=== PATIENT | male | born 1985 | race Two or more races ===

== ENCOUNTER 2024-12-09 09:20 | Emergency (ER) | payer MEDICAID, SELFPAY ==
[2024-12-09 09:37] VITALS: BP 145/79; PULSE 77; RESP 18; TEMP 36.4; O2SAT 98; BMI 26.4
--- NOTE | 2024-12-09 10:03 | XR_ITS ---
Examination: CT maxillofacial, with contrast 2-D sagittal and coronal reconstructions. 3-D reconstructions Date and time of exam:December 09, 2024 1354 hours INDICATIONS: Left-sided facial swelling beginning one day ago CTDI: vol (mGy):20.2 DLP: (mGycm):397 Technique: Multiple axial images maxillofacial region, 3.0 mm slice thickness, post intravenous injection 50 cc cc Isovue 370. 2-D sagittal coronal reconstructions. 3-D reconstructions Low dose protocols were performed. One or more of the following dose reduction techniques were used; automated exposure control, adjustment of the mA and/or KV according to patient size, use of iterative reconstruction technique. Findings: Frontal bone intact Orbital rims intact with significant left maxillary sinus disease No nasal bone fractures. No depression zygomatic arches Pterygoid plates maxilla and the mandible intact Mild soft tissue facial swelling external to the left maxilla but no soft tissue abscess Normal epiglottis Bilateral carotid triangle lymph nodes, the largest on the left side 18 mm The larynx appears normal IMPRESSION: Soft tissue left facial cellulitis, no soft tissue abscess No cortical bone destruction
--- NOTE | 2024-12-09 10:12 | PD.EDRME ---
Rapid Medical Screening Exam RME Arrival date/time: 12/09/24 09:20 Chief Complaint: Dental/Oral/Throat Time Seen by Provider: 12/09/24 09:28 Vital signs: Vital Signs Temperature 97.5 F 12/09/24 09:37 Pulse Rate 77 12/09/24 09:37 Respiratory Rate 18 12/09/24 09:37 Blood Pressure 145/79 H 12/09/24 09:37 Pulse Oximetry (%) 98 12/09/24 09:37 Oxygen Delivery Method Room Air 12/09/24 09:37 RME Narrative: 39-year-old male patient presents emergency department with left-sided facial pain over the last 24 hours there is moderate swelling over patient's left face and over the left lower eyelid. He denies fever or chills he reports tooth pain prior to his symptoms.
[2024-12-09 10:36] LABS: Lactate (Lactic Acid) 1.8 mMol/L (0.4-2.0)
[2024-12-09 10:43] LABS: Basophils # (Auto) 0.1 Thou/mm3 (0.0-0.2); Basophils % (Auto) 0 % (0-2.5); Eosinophils # (Auto) 0.1 Thou/mm3 (0.0-0.5); Eosinophils % (Auto) 1 % (0-10); Hematocrit 43.9 % (41.0-53.0); Hemoglobin 16.3 g/dL (13.5-16.0); Immature Granulocytes % (Auto) 1 % (0-0); Immature Granulocytes Auto 0.06 Thou/mm3 (0.00-0.00); Lymphocytes % (Auto) 18 % (10-50); Mean Corpuscular HGB Conc 37.1 g/dl (31.0-37.0); Mean Corpuscular Hemoglobin 29.6 pg (25.0-35.0); Mean Corpuscular Volume 80 fL (80-100); Monocytes # (Auto) 0.7 Thou/mm3 (0.0-0.8); Monocytes % (Auto) 6 % (0-12); Neutrophils # (Auto) 8.8 Thou/mm3 (1.8-7.7); Neutrophils % (Auto) 75 % (37-80); Nucleated Red Blood Cell % 0 /100 WBC (0); Platelet Count 324 Thou/mm3 (140-440); RDW Standard Deviation 35.7 fL (35.1-43.9); Red Blood Count 5.51 Miln/mm3 (4.50-5.90); White Blood Count 11.7 Thou/mm3 (3.8-10.6)
[2024-12-09 11:14] LABS: Alanine Aminotransferase 36 U/L (10-49); Albumin, Serum 4.5 gm/dL (3.5-5.0); Albumin/Globulin Ratio 1.4 (1.2-2.2); Alkaline Phosphatase 98 U/L (46-116); Anion Gap 10 (7-16); Aspartate Amino Transferase 22 U/L (0-34); BUN/Creatinine Ratio 5 Ratio (12-20); Blood Urea Nitrogen < 5 mg/dL (9-23); Calcium 9.2 mg/dL (8.3-10.6); Calcium (Corrected) 9.2 mg/dL (8.5-10.1); Carbon Dioxide 24.6 mMol/L (20.0-31.0); Chloride 99 mMol/L (98-107); Creatinine (Component) 1.1 mg/dL (0.6-1.3); Globulin 3.3 gm/dL (2.3-3.5); Osmolality,Calculated 282 (275-295); Potassium 3.9 mMol/L (3.4-5.1); Sodium 134 mMol/L (136-145); Total Protein 7.8 gm/dL (5.7-8.2); eGFR > 60 See Note
[2024-12-09 11:16] LABS: Glucose 403 mg/dL (74-106)
[2024-12-09] MEDS: MORPHINE SULF INJ 10 MG/ML VIAL 4 MG IVP ×3 (13:14→16:41)
[2024-12-09] MEDS: SODIUM CHLORIDE 0.9% 1000 ML 1,000 ML 999 ML IV (13:14)
[2024-12-09] MEDS: cefTRIAXone/D5w 1gm IV premix 1 GM/50 ML BAG IV (13:15)
[2024-12-09 13:17] VITALS: BP 132/78; PULSE 80; RESP 18; TEMP 36.6; O2SAT 98
[2024-12-09 13:23] LABS: Glucose Estimated Average 312 mg/dL (80-131); Hemoglobin A1C 12.5 % Hgb (4.8-6.0)
[2024-12-09 14:55] VITALS: BP 159/83; PULSE 88; RESP 18; TEMP 37; O2SAT 97
--- NOTE | 2024-12-09 16:17 | EDNOTE_ITS ---
ED Dental RME/HPI General Chief complaint: Dental/Oral/Throat Stated complaint: Left cheek swollen X 2 days Time Seen by Provider: 12/09/24 09:28 Arrival date/time: 12/09/24 09:20 RME / HPI RME / HPI Narrative: 39-year-old male patient presents emergency department with left-sided facial pain over the last 24 hours there is moderate swelling over patient's left face and over the left lower eyelid. He denies fever or chills he reports tooth pain prior to his symptoms. Duration: constant Severity scale (1-10): 10 Relieving factors: nothing Exacerbating factors: chewing Related Data Previous Rx's ?Medication ?Instructions ?Recorded hydrocodone 5 mg-acetaminophen 325 1 tab PO Q4H PRN pa in #14 tabs 09/14/ mg tablet amoxicillin 500 mg-potassium 1 tab PO TID 10 days #30 tabs 12/09/24 clavulanate 125 mg tablet (Augmentin) hydrocodone 5 mg-acetaminophen 325 1 tab PO Q8H PRN pa in #20 tabs 12/09/24 mg tablet ibuprofen 600 mg tablet 600 mg PO QID PRN pain #30 t abs 12/09/24 metformin 500 mg tablet 500 mg PO TID 30 days #90 ta bs 12/09/24 Allergies Allergy/AdvReac Type Severity Reaction Status Date / Time No Known Allergies Allergy Mild Abdominal Uncoded 12/09/24 09:24 Pain Review of Systems Review of Systems Systems Reviewed: All systems reviewed, normal except as documented Constitutional Constitutional: Reports system reviewed and no additional complaints, except as documented ENT Ears, Nose, Mouth, and Throat: Reports system reviewed and no additional complaints, except as documented Cardiovascular Cardiovascular: Reports system reviewed and no additional complaints, except as documented and Reports as per HPI Respiratory Respiratory: Reports system reviewed and no additional complaints, except as documented and Reports as per HPI Gastrointestinal Gastrointestinal: Reports system reviewed and no additional complaints, except as documented Neurologic Neurologic: Reports system reviewed and no additional complaints, except as documented Psychiatric Psychiatric: Reports system reviewed and no additional complaints, except as documented Hematologic/Lymphatic Hematologic/Lymphatic: Reports system reviewed and no additional complaints, except as documented and Denies lymphadenopathy ED Exam General General appearance: Present alert and in no apparent distress Head Head exam: Present atraumatic Expanded Head Exam Head exam physical: Absent Mitchell's sign, tenderness of temporal artery or CSF otorrhea Head image: 2 1. swelling ENT ENT exam: Present normal exam, mucous membranes moist, TM's normal bilaterally and normal external ear exam; Absent normal oropharynx Chest Chest inspection: Present normal inspection Respiratory Respiratory exam: Present normal lung sounds bilaterally Cardiovascular Cardiovascular exam: Present regular rate and normal rhythm Extremities Exam Extremities exam: Present normal inspection and full ROM Neurological Exam Neurological exam: Present alert, oriented X3 and CN II-XII intact Psychiatric Psychiatric exam: Present normal affect; Absent normal mood Skin Skin exam: Present warm Course Quality Measures none Orders Category Date Time Status CT Screening NOW Care 12/09/24 10:[address] facial bones w con Stat Exams 12/09/24 10:03 Completed Blood Culture (Lab) Stat Lab 12/09/24 10:24 Completed CBC [CBC] Stat Lab 12/09/24 10:27 Completed CMP [Comprehensive Metabolic Panel] Stat Lab 12/09/24 10:27 Completed CRP [C-Reactive Protein] Stat Lab 12/09/24 10:27 Completed Hemoglobin A1C [Glycohemoglobin w (eAG)] Stat Lab 12/09/24 10:27 Completed Lactic Acid [Lactate (Lactic Acid)] Stat Lab 12/09/24 10:27 Completed Insulin Regular Med 12/09/24 16:16 Discontinued 4 unit IV X1 ONE Morphine Inj Med 12/09/24 10:05 Discontinued 4 mg IVP X1 ONE Morphine Inj Med 12/09/24 14:36 Discontinued 4 mg IVP X1 ONE Morphine Inj Med 12/09/24 16:17 Discontinued 4 mg IVP X1 ONE Sodium Chloride 0.9% 1000 ml [Ns] 1,000 ml Med 12/09/24 10:05 Discontinued IV 999 mls/hr cefTRIAXone [Rocephin] Med 12/09/24 10:03 Discontinued 1,000 mg IV X1 ONE cefTRIAXone/D5w 1gm IV premix [Rocephin/D5w 1gm IV Med 12/09/24 10:15 Discontinued premix] 1 gm in 50 ml IV X1 Vital Signs Vital signs: Vital Signs Temperature 97.5 F 12/09/24 09:37 Pulse Rate 77 12/09/24 09:37 Respiratory Rate 18 12/09/24 09:37 Blood Pressure 145/79 H 12/09/24 09:37 Pulse Oximetry (%) 98 12/09/24 09:37 Oxygen Delivery Method Room Air 12/09/24 09:37 Dental / Oral MDM Narrative MDM Narrative:: 39-year-old male patient presents emergency department with complaint of facial swelling for the past 24 hours. He denies trauma but states he recently had a dental infection but has been unable to see his dentist. CT scanning was negative for facial abscess but did indicate facial cellulitis. Patient was unsure of his diabetic so blood work was done which indicated a hemoglobin A1c of 12.5 and random blood glucose of 403 mg/dL consistent with diabetes. Patient's blood work was negative for elevated lactic acid and he also shows no signs of DKA. Patient will be DC'd home with oral antibiotics and metformin and encouraged to see his PCP to be started out on more glucose lowering medications patient is in agreement with plan and is stable to DC home patient remained afebrile nontoxic-appearing throughout ED stay. Patient data External records reviewed:: [facility] previous records Clinical information provided by:: patient Social determinants that could affect healthcare access:: none Patient has the following chronic illnesses:: DM ( newly diagnosed) How is presenting disease/condition affected by chronic disease/condition?: e xacerbated by Evaluation data The following diagnostics were reviewed and interpreted by me:: lab results and radiology exam(s) Lab and/or radiology exams considered but not ordered:: but considered and ordered Interpretation Summary: elevated HgbA1c and elevated blood glucose level Medications / Prescriptions Medications or Prescriptions considered but not ordered:: meds considered and ordered Medication administrations:: Medication Administration History Discontinued Medications Ceftriaxone Sodium (Ceftriaxone Sod Inj 1,000 Mg Vial) 1,000 mg IV X1 ONE Stop: 12/09/24 10:04 Last Admin: 12/09/24 13:15 Dose: Not Given Documented By: ARF Non-Admin Reason: Discontinued Sodium Chloride (Ns) 1,000 mls @ 999 mls/hr IV .Q1H1M ONE Stop: 12/09/24 11:05 Last Infusion: 12/09/24 18:25 Dose: Infused Documented By: Admin: 12/09/24 13:14 Dose: 999 mls/hr Documented By: ARF Ceftriaxone Sodium/Dextrose (Rocephin/D5w 1gm Iv Premix) 1 gm in 50 mls @ 100 mls/hr IV X1 ONE Stop: 12/09/24 10:44 Last Infusion: 12/09/24 18:24 Dose: Infused Documented By: Admin: 12/09/24 13:15 Dose: 100 mls/hr Documented By: HAYLEE Insulin Human Regular (Insulin Hum Regular 1 Unit/0.01 Ml (Per Unit)) 4 unit IV X1 ONE Stop: 12/09/24 16:17 Last Admin: 12/09/24 16:56 Dose: Not Given Documented By: USMAN Non-Admin Reason: Cancelled by Provider Morphine Sulfate (Morphine Sulf Inj 10 Mg/Ml Vial) 4 mg IVP X1 ONE Stop: 12/09/24 10:06 Last Admin: 12/09/24 13:14 Dose: 4 mg Documented By: HAYLEE Morphine Sulfate (Morphine Sulf Inj 10 Mg/Ml Vial) 4 mg IVP X1 ONE Stop: 12/09/24 14:37 Last Admin: 12/09/24 14:52 Dose: 4 mg Documented By: USMAN Morphine Sulfate (Morphine Sulf Inj 10 Mg/Ml Vial) 4 mg IVP X1 ONE Stop: 12/09/24 16:18 Last Admin: 12/09/24 16:41 Dose: 4 mg Documented By: USMAN per above Consultations Consultation(s) initiated? (list below): No Diagnosis Dental Differential Diagnosis: gingival abscess, dental caries, toothache, dental abscess, fracture of tooth and aphthous ulcer Most likely diagnosis given after review of the tests above:: facial cellulitis, dental abscess Admission Indicated Admission indicated?: not indicated Explain why admission is indicated or not indicated:: afrbrile, non toxic appearing not septic Admission Request Was there a request for admission?: No Disposition Plan Disposition Plan: Discharge Discharge Attestation Discharge Attestation: The patient and all family members were given an opportunity to ask questions and understood the discharge instructions. Discharge instructions specifically effects, indications for sooner follow up or return to the emergency department, and the expected course of current diagnosis. Patient condition: Stable Critical Care Time Critical Care Time Critical Care Time: Yes Total Critical Care Time (min.): 90 Attestation: Attest to patient symptoms needing critical care time as patient received IV abx and imaging studies to r/o any life threatening emergency Discharge Plan Plan Patient Disposition: HOME (Self Care) Prescriptions/Referrals Prescriptions/Med Rec: New amoxicillin-pot clavulanate [Augmentin] 500-125 mg tablet 1 tab PO TID 10 Days Qty: 30 0RF ibuprofen 600 mg tablet 600 mg PO QID PRN (Reason: pain) Qty: 30 0RF hydrocodone-acetaminophen 5-325 mg tablet 1 tab PO Q8H MDD 10 PRN (Reason: pain) Qty: 20 0RF metformin 500 mg tablet 500 mg PO TID 30 Days Qty: 90 0RF No Action hydrocodone-acetaminophen 5-325 mg tablet 1 tab PO Q4H MDD 4 PRN (Reason: pain) Qty: 14 0RF Referrals: Keyur Valle PA-C [Primary Care Provider] - In 1 week Problem List Clinical Impression: Toothache, Uncontrolled diabetes mellitus, Cellulitis of head except face Clinical Impression: (Ruled Out): Dental abscess Patient/Caregiver Discharge Instructions Education Materials: ED Abscess Antibiotic ..., ED Diabetes with High Blood Sugar, ED Dental Abscess Print Language: Japanese Stand Alone Forms: Effie Award Info., Patient Portal Info Letter
[2024-12-09 16:54] VITALS: BP 159/96; PULSE 76; RESP 18; TEMP 37.2; O2SAT 98
== END 2024-12-09 18:27 | disposition home or self-care (01) ==
PROVIDERS: Physician Assistant; Emergency Provider Emergency Medicine; PCP Physician Assistant
DX: L03.811 Cellulitis of head [any part, except face] (principal); E11.65 Type 2 diabetes mellitus with hyperglycemia; K08.89 Other specified disorders of teeth and supporting structures
CPT/HCPCS: 36415; 70487; 80053; 83036; 83605; 85025; 86140; 87040; 96365; 96366; 96375; 96376; 99291; 99292; A4649; J0696; J2270; J7030; Q9967